=== PATIENT | male | born 1950 | race Caucasian/White ===

== ENCOUNTER → 2017-01-18 | Outpatient (CLI) | payer OTHER ==
[~2017-01-18] MED LIST: GADOBUTROL 10 ML VIAL IVP ONE
== END ==
LOC: FIMAGING 07:01
PROVIDERS: ATTEND Psychiatry & Neurology Neurology
DX: Z03.89 Encounter for observation for other suspected diseases and conditions ruled out (principal); H90.5 Unspecified sensorineural hearing loss
CPT/HCPCS: A9585

== ENCOUNTER 2017-12-08 08:18 | Emergency (ER) | payer OTHER ==
--- NOTE | 2017-12-08 09:00 | EDPHY ---
H & P Stated Complaint: rt shoulder injury last noc aprox 193,dog tipped pt,fell edge of deck Time Seen by Provider: 12/08/17 08:22 HPI/ROS: Chief Complaint: Shoulder pain HPI: 67-year-old male sustained an injury to his right shoulder yesterday evening about 7:30. Patient states that he was standing on a deck about foot above the ground when his dog ran and pulled him off the deck. He landed on his right shoulder. He has been having shoulder pain since that time. Hurts primarily with movement. No prior shoulder injuries. He also sustained abrasion to his left forearm. He did not hit his head. No loss of consciousness. No headache. No nausea or vomiting. ROS: 10 systems were reviewed and were negative except those elements noted in the HPI. PMH: MS Social History: No smoking, no alcohol, no recreational drug use Family History: non-contributory Physical Exam: General: Awake, alert, no acute distress Right shoulder. He has mild anterior tenderness with no bony deformity. He has pain with external rotation and abduction within the shoulder. No joint laxity. Sensations intact distally. He also has an abrasion on his left forearm. Skin: No rash - Personal History Current Tetanus Diphtheria and Acellular Pertussis (TDAP): Yes Tetanus Vaccine Date: 2013 - Medical/Surgical History Hx Asthma: No Hx Chronic Respiratory Disease: No Hx Diabetes: No Hx Cardiac Disease: No Hx Renal Disease: No Hx Cirrhosis: No Hx Alcoholism: No Hx HIV/AIDS: No Hx Splenectomy or Spleen Trauma: No Other PMH: Med-HTN,MS,thyroid. Surg-bilat ankles,vericose veins,henia-left inguinal,oral surgery,birthmark back,T&A - Social History Smoking Status: Never smoked Constitutional: Initial Vital Signs Temperature (C) 36.8 C 12/08/17 08:24 Heart Rate 60 12/08/17 08:24 Respiratory Rate 18 12/08/17 08:24 Blood Pressure 166/88 H 12/08/17 08:24 O2 Sat (%) 98 12/08/17 08:24 O2 Delivery Mode Room Air Allergies/Adverse Reactions: meperidine HCl [From Demerol] Allergy (Verified 12/08/17 08:35) Vomiting Penicillins Allergy (Verified 12/08/17 08:35) Rash promethazine HCl [From Phenergan] Allergy (Verified 12/08/17 08:35) Other-Enter Comments Home Medications: Medication Instructions Recorded Aspirin [Aspirin 81mg (OTC)] 162 mg PO DAILY 07/08/12 Cholecalciferol Vit D3 [Vitamin D3 1,000 units PO BID 07/08/12 1000 units (OTC)] Completed By Pharmacist 07/08/12 07/08/12 Folic Acid 0.8 mg PO DAILY 07/08/12 GLATIRAMER ACETATE [Copaxone] 20 mg SQ HS 07/08/12 LEVOTHYROXINE SODIUM [Levoxyl 137 137 mcg PO DAILY06 07/08/12 mcg] Lisinopril [Zestril 10 mg (RX)] 10 mg PO HS 07/08/12 Multivitamins [Tab-A-Marlene] 1 each PO DAILY 07/08/12 [place]-3 Fatty Acids [Fish Oil 1000 1,000 mg PO BID 07/08/12 mg (OTC)] Pantoprazole Sodium [Protonix 40mg 40 mg PO DAILY 07/08/12 (RX)] Rosuvastatin Calcium [Crestor 20mg 20 mg PO HS 07/08/12 (RX)] TESTOSTERONE [TESTIM] 5 gm TD DAILY 07/08/12 Medical Decision Making - Diagnostics Imaging Results: Right shoulder: No acute fracture or bony abnormality per my interpretation. Imaging: I viewed and interpreted images myself ED Course/Re-evaluation: 67-year-old male with a shoulder contusion and sprain. No obvious fracture dislocation or separation on per my interpretation. Patient's pain is controlled. Will discharge with follow-up with primary care physician, return for any concerns. Departure - Departure Disposition: Home, Routine, Self-Care Clinical Impression: Shoulder contusion, Shoulder sprain Condition: Good Instructions: Shoulder Sprain (ED), Contusion in Adults (ED) Additional Instructions: Apply ice for 15 min of every hour while awake. Take ibuprofen, 600 mg every 8 hr. You may alternate with acetaminophen, 1000 mg every 8 hr. Follow up with primary care physician in 3-4 days if symptoms are not improving. Referrals: Matias Varela MD [Primary Care Provider] - As per Instructions
[2017-12-08 09:09] VITALS: BP 166/88
== END 2017-12-08 09:24 | disposition home or self-care (01) ==
LOC: CED 08:18
DX: S43.401A Unspecified sprain of right shoulder joint, initial encounter (principal); S40.011A Contusion of right shoulder, initial encounter; W13.8XXA Fall from, out of or through other building or structure, initial encounter; Y92.018 Other place in single-family (private) house as the place of occurrence of the external cause; I10 Essential (primary) hypertension; G35 Multiple sclerosis
CPT/HCPCS: 73030-PO

== ENCOUNTER 2017-12-25 10:35 | Inpatient (IN) | payer OTHER ==
--- NOTE | 2017-12-24 13:13 | GHP ---
DATE OF ADMISSION: 12/25/2017 CHIEF COMPLAINT: Left ankle. HISTORY OF PRESENT ILLNESS: The patient is a 67-year-old with history of progressive left ankle pain . He is limiting his activity secondary to his symptoms. PAST MEDICAL HISTORY: Positive for hypothyroid, hypertension, hypercholesterolemia. Sleep apnea. MEDICATIONS: Include: Levothyroxine, lisinopril, pantoprazole, rosuvastatin, Testim, and trazodone. ALLERGIES: He is allergic to Demerol, penicillins, and Phenergan. SOCIAL HISTORY: Negative for tobacco use. FAMILY HISTORY: Noncontributory. PHYSICAL EXAMINATION: GENERAL: The patient is alert and oriented x3, in no acute distress. HEENT: Head is normocephalic. Pupils equal, round, reactive to light. Extraocular eye movements intact. NECK: Supple. No JVD or lymphadenopathy. CHEST: Clear to auscultation. HEART: Regular rate and rhythm. No murmurs or gallops. ABDOMEN: Soft, nontender, nondistended. GENITAL/RECTAL/BREASTS: E xam was deferred. EXTREMITIES: Exam reveals the swelling and tenderness along his left anterior ankl e. He has subtle cavovarus malalignment. ASSESSMENTS: 1. 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 3. Left cavovarus foot. PLAN: The patient is scheduled to undergo a left total ankle arthroplasty and gastrocnemius recessio n with possible calcaneal or 1st metatarsal osteotomy. /[id number]/MODL
[2017-12-25] MEDS ORDERED: BUPIVACAINE 0.5% 30 ML SDV ONE (11:32)
[2017-12-25] MEDS ORDERED: LR 1,000 ML IV ONE (11:37)
[2017-12-25] MEDS ORDERED: MIDAZOLAM 2 MG/2 ML VIAL IVP ONE (11:54)
--- NOTE | 2017-12-25 11:54 | PDANEPAE ---
ANE History of Present Illness 63 yo for L TAA ANE Past Medical History - Cardiovascular History Hx Hypertension: Yes Hx Arrhythmias: No Hx Chest Pain: No Hx Coronary Artery / Peripheral Vascular Disease: No Hx CHF / Valvular Disease: No Hx Palpitations: No Cardiovascular History Comment: bp's have been running lower recently. pcp following bp medications - Pulmonary History Hx COPD: No Hx Asthma/Reactive Airway Disease: No Hx Recent Upper Respiratory Infection: No Hx Oxygen in Use at Home: No Hx Sleep Apnea: Yes Sleep Apnea Screening Result - Last Documented: Positive Pulmonary History Comment: nora positive uses cpap - Neurologic History Hx Cerebrovascular Accident: No Hx Seizures: No Hx Dementia: No Neurologic History Comment: MS - Endocrine History Hx Diabetes: No Endocrine History Comment: a1c was a little high a few years ago- changed diet and increased activity and it is normal now. hypothyroidism - Renal History Hx Renal Disorders: No - Liver History Hx Hepatic Disorders: No - Neurological & Psychiatric Hx Hx Neurological and Psychiatric Disorders: No - Cancer History Hx Cancer: No - Congenital Disorder History Hx Congenital Disorders: No - GI History Hx Gastrointestinal Disorders: Yes Gastrointestinal History Comment: reflux. hx of diverticulitis- modified diet no issues currently - Other Health History Other Health History: wears glasses. bilateral hearing aides - Chronic Pain History Chronic Pain: Yes (left foot) - Surgical History Prior Surgeries: 2013 varicose vein surgery x2 07/2012 and 06/2012. 2000 bilateral ankle reconstructions. vasectomy. hernia repair 40 yrs ago. t&a. ethan on back removed ANE Review of Systems Review of Systems: - Exercise capacity METS (RN): 4 METS ANE Patient History - Allergies Allergies/Adverse Reactions: meperidine HCl [From Demerol] Allergy (Verified 12/08/17 08:35) Vomiting Penicillins Allergy (Verified 12/08/17 08:35) Rash promethazine HCl [From Phenergan] Allergy (Verified 12/19/17 15:33) delirium - Home Medications Home medications: home medication list seen and reviewed Home Medications: Aspirin [Aspirin 81mg (OTC)] 162 mg PO DAILY 07/08/12 [Last Taken 07/02/12] Cholecalciferol Vit D3 [Vitamin D3 1000 units (OTC)] 2,000 units PO DAILY [Last Taken 07/07/12] Folic Acid 0.8 mg PO DAILY 07/08/12 [Last Taken 07/07/12] GLATIRAMER ACETATE [Copaxone] 40 mg SQ MOWEFR@2100 07/08/12 [Last Taken 07/07/12 ] Multivitamins [Tab-A-Marlene] 1 each PO DAILY 07/08/12 [Last Taken 07/07/12] [place]-3 Fatty Acids [Fish Oil 1000 mg (OTC)] 1,000 mg PO BID 07/08/12 [Last Taken 07/07/12] Pantoprazole Sodium [Protonix 40mg (RX)] 40 mg PO DAILY 07/08/12 [Last Taken 04/17 04:30] Rosuvastatin Calcium [Crestor 20mg (RX)] 20 mg PO HS 07/08/12 [Last Taken ] Herbals/Supplements -Info Only 1 ea PO DAILY 12/14/17 [Last Taken Unknown] Levothyroxine [Synthroid 125 mcg (*)] 125 mcg PO DAILY06 12/14/17 [Last Taken Unknown] Lisinopril [Zestril 20 mg (*)] 20 mg PO HS 12/14/17 [Last Taken Unknown] Testosterone [Testim] 7.5 gm TD DAILY 12/14/17 [Last Taken Unknown] traZODone [traZODONE 50MG (*)] 75 mg PO HS 12/14/17 [Last Taken Unknown] - NPO status NPO Status: no food or drink >8 hours - Smoking Hx Smoking Status: Never smoked - Family Anes Hx Family Hx Anesthesia Complications: none ANE Labs/Vital Signs - Vital Signs Height: 6 ft 4 in Weight: 102.058 kg ANE Physical Exam - Airway Neck exam: FROM Mallampati Score: Class 2 Mouth exam: normal dental/mouth exam - Pulmonary Pulmonary: no respiratory distress - Cardiovascular Cardiovascular: regular rate and rhythym - ASA Status ASA Status: III ANE Anesthesia Plan Anesthesia Plan: general endotracheal anesthesia Regional Anesthesia: continuous NB (Discussed CPNB, pt prefers not to have. )
[2017-12-25] MEDS ORDERED: PROPOFOL/EMULSION 500 MG/50 ML BOTTLE IV ONE ×2 (12:12→14:32)
[2017-12-25] MEDS ORDERED: ROCURONIUM 100 MG/10 ML VIAL ONE (12:12)
[2017-12-25] MEDS ORDERED: fentaNYL 250 MCG/5 ML INJ ONE (12:12)
[2017-12-25] MEDS ORDERED: DEXAMETHASONE 4 MG/ML VIAL ONE (12:12)
[2017-12-25] MEDS ORDERED: CEFAZOLIN 2 GM/DEXTROSE/100 ML BAG IV ONE (13:11)
[2017-12-25] MEDS ORDERED: ceFAZolin 2 GM/DEXTROSE 100 ML IV ONE (13:20)
[2017-12-25] MEDS ORDERED: HYDROmorphONE/DILAUDID 2 MG/ML INJ ONE ×2 (14:10→15:50)
[2017-12-25] MEDS ORDERED: KETOROLAC 30 MG/1 ML SDV ONE (14:51)
[2017-12-25] MEDS ORDERED: ONDANSETRON 4 MG/2 ML VIAL ONE (14:51)
[2017-12-25] MEDS ORDERED: ONDANSETRON 4 MG/2 ML VIAL IVP PRN (14:57)
[2017-12-25] MEDS ORDERED: NALOXONE HCL 0.4 MG/ML INJ IVP PRN (14:57)
--- NOTE | 2017-12-25 15:42 | POSTOPPROG ---
Post Op Note Date of Operation: 12/25/17 Surgeon: Truong Ridley Frame Table Operator: RYAN Quesada Pre-op Diagnosis: L Ankle arthrosis, gastroc contracture Post-op Diagnosis: same Procedure: L TAA, gastroc recession Inf/Abcess present in the surg proc area at time of surgery?: No EBL: Minimal
[2017-12-25] MEDS ORDERED: LACTULOSE 20 GM/30 ML UDCUP PO PRN (15:43)
[2017-12-25] MEDS ORDERED: MAGNESIUM HYDROXIDE 30 ML UDCUP PO PRN (15:43)
[2017-12-25] MEDS ORDERED: BISACODYL 10 MG SUPP PR PRN (15:43)
[2017-12-25] MEDS ORDERED: diphenhydrAMINE 25 MG CAP PO PRN (15:43)
[2017-12-25] MEDS ORDERED: morphINE PCA 30 MG/30 ML PCA IV PRN (15:43)
[2017-12-25] MEDS ORDERED: POLYETHYLENE GLYCOL 3350 17 GM PKT PO PRN (15:43)
[2017-12-25] MEDS ORDERED: D5W 1/2 NS W/ 20 KCl/L 1,000 ML IV SCH (15:45)
[2017-12-25] MEDS ORDERED: fentaNYL 100 MCG/2 ML INJ ONE (15:50)
[2017-12-25] MEDS: fentaNYL 100 MCG/2 ML INJ IVP PRN ×2 (15:56→16:02)
[2017-12-25] MEDS: HYDROmorphONE/DILAUDID 2 MG/ML INJ IVP PRN ×2 (15:57→16:06)
[2017-12-25] MEDS: OMEGA-3 FATTY ACIDS 1,000 MG CAP PO SCH (20:28)
[2017-12-25] MEDS: SENNOSIDES/DOCUSATE SODIUM TAB PO SCH (20:28)
[2017-12-25] MEDS: ceFAZolin 2 GM/DEXTROSE 100 ML IV SCH (20:30)
[2017-12-25] MEDS ORDERED: traZODone 50 MG TAB PO SCH (21:00)
[2017-12-25] MEDS ORDERED: LISINOPRIL 20 MG TAB PO SCH (21:00)
[2017-12-25] MEDS ORDERED: ROSUVASTATIN CALCIUM 20 MG TAB PO SCH (21:00)
[2017-12-25] MEDS: oxyCODONE IR 5 MG TAB PO PRN (23:40)
--- NOTE | 2017-12-26 02:19 | GOP ---
DATE OF OPERATION: 12/25/2017 SURGEON: Truong Ridley MD RESOURCE TECHNICIAN: KORY eSth, who was necessary for the completion of the surgery. ANESTHESIA: General. PREOPERATIVE DIAGNOSIS: 1. 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 PROCEDURE PERFORMED: 1. Left implant total ankle arthroplasty. 2. Left gastrocnemius recession. 3. Intraoperative use of fluoroscopy. FINDINGS: ESTIMATED BLOOD LOSS: Minimal. INDICATIONS: The patient is a 67 year old with history of progressive ankle pain. Clinically and ra diographically he is noted to have advanced ankle arthrosis. Based on his persistence of symptoms, r efractory to nonoperative treatment he is interested in pursuing operative treatment. From an operat tamera standpoint for end-stage ankle arthritis, options including arthrodesis and total ankle arthropla sty were discussed with anticipated risks and benefits of both. The patient elected to pursue total ankle arthroplasty. He acknowledged, he understood the potential risks of the operation including, b ut not limited to bleeding, infection, neurovascular damage, including loss of limb or limb function, implant failure, necessitating removal, revision, arthrodesis, or amputation, and anesthetic risks. He acknowledged he understood the potential risks, planned procedure, and postoperative plan well. He had all questions answered prior to surgery. He gave his consent for the operative procedure. DESCRIPTION OF PROCEDURE: Patient brought to the operating after IV antibiotics were administered. He was placed in a supine position where general anesthetic was administered. A tourniquet was place d on the left thigh and a bump underneath the left hip and shoulder, and left lower extremity. He wa s prepped and draped in standard sterile fashion. After marking the incisions and Travon wrap exsanguin ation, tourniquet was inflated to 275. Attention was initially directed toward the ankle. An anteri or approach was utilized. Skin and subcutaneous tissue were longitudinally incised. The extensor re tinaculum was incised in line with the skin incision. The interval between the extensor hallucis rudolph danelle and tibialis anterior was utilized for exposure. The joint capsule was longitudinally incised an d reflected medially and laterally taking care to avoid damage to the neurovascular bundle. Prominen t osteophytes on the anterior aspect of the distal tibia were removed with a chisel and rongeur. End -stage ankle arthritis was noted. The cutting jig from the [employer] total ankle was applied. The jig was optimally corrected for length, varus and valgus, rotation, flexion, extension, and medi al and lateral translation utilizing the Chad wing, fluoroscopic visualization, and flexion-extensio n leighton. The cutting jig was pinned into place. The medial gutter was drilled through the gutter hole s and a pin left in place for protection of the medial gutter during the tibial plafond cut. A saw w as utilized to create the plafond cut. Cut portions of bone were removed with a rongeur. The talar plafond guide was then applied. After distraction through the cutting jig was performed, the guide w as pinned into place with the ankle in neutral dorsiflexed position. The tibial plafond cut was made with a saw. The posterior chamfer guide was then optimally positioned and pinned into place. A siz e 2 guide was utilized and the size was confirmed to be optimal. The posterior chamfer cut was made with a saw. The anterior milling device was then applied and the anterior talar cuts were performed with a coring drill. A size 2 talar trial was impacted into place and found to have excellent fit. Measurements showed a size 3-X tibia would be optimal. A size 3-X tibia with a 6 mm polyethylene was tried to be inserted, but it was somewhat tight. A partial deltoid release was performed. A small amount of the distal tibial plafond was further resected with the saw. After doing this, favorable f it was achieved. There was some tightness, however, to dorsiflexion. Attention at this point was di rected toward the gastrocnemius recession. A longitudinal incision was made along the medial aspect of the lower leg at the mid aspect of the ga stroc. Skin and subcutaneous tissue were sharply incised. Sharp dissection was carried through the superficial posterior compartment fascia in line with the skin incision. The interval between the ga strocnemius and soleus was dissected. Protecting the interval with the speculum, the anterior tendon and the gastrocnemius was released. This allowed for favorable dorsiflexion. Definitive size 3-X t ibial component was impacted into place, followed by a size 2 talar component, and 6 mm polyethylene. The ankle was taken through range of motion, found to have favorable motion and stability. Fluoros copic views confirmed optimal implant placement. Attention was directed toward closure. The retinaculum was closed with 2-0 Vicryl suture in interrup omid fashion. Subcutaneous tissue was closed with 3-0 Vicryl suture in interrupted fashion. Skin nino sed with 4-0 nylon interrupted sutures. The tourniquet was deflated prior to closure with no untowar d bleeding seen. The patient was then taken to the recovery room, extubated in stable condition postoperatively. All sponge, needle, and instrument counts were reported as being correct. DRAINS: None. COMPLICATIONS: None. PLAN: The patient will be admitted for medical management. He will be nonweightbearing on his opera tive extremity. /[id number]/MODL
[2017-12-26] MEDS: ceFAZolin 2 GM/DEXTROSE 100 ML IV SCH (05:04)
[2017-12-26] MEDS ORDERED: LEVOTHYROXINE 125 MCG TAB PO SCH (06:00)
--- NOTE | 2017-12-26 07:42 | SOAPPROG ---
SOAP Progress Note Assessment/Plan: Assessment: S/P TAA Pain tolerable on po Marvin po +U/O Splint intact, no D/C Toes with good cap refill Plan: OOB/PT D/C home 12/26/17 07:40 Objective: Vital Signs Temp Pulse Resp BP Pulse Ox 36.6 C 85 16 114/57 L 93 12/26/17 04:43 12/26/17 04:43 12/26/17 04:43 12/26/17 04:43 12/26/17 04:43 12/25/17 12/26/17 12/27/17 05:59 05:59 05:59 Intake Total 2950 Output Total 1100 Balance 1850 ICD10 Worksheet Patient Problems: Problems Problem Status Onset Acute retention of urine Active Nausea Active
[2017-12-26 08:00] VITALS: BP 128/60
--- NOTE | 2017-12-26 08:05 | PDMN ---
Medical Necessity Medical necessity: CPT 52255 L ankle athroplasty with implant, [facility] IP only procedure
[2017-12-26] MEDS: OMEGA-3 FATTY ACIDS 1,000 MG CAP PO SCH (08:50)
[2017-12-26] MEDS: SENNOSIDES/DOCUSATE SODIUM TAB PO SCH (08:51)
[2017-12-26] MEDS ORDERED: PANTOPRAZOLE SODIUM 40 MG TAB PO SCH (09:00)
[2017-12-26] MEDS ORDERED: TESTOSTERONE TD SCH (09:00)
[2017-12-26] MEDS ORDERED: CHOLECALCIFEROL VIT D3 1,000 UNITS TAB PO SCH (09:00)
[2017-12-26] MEDS ORDERED: FOLIC ACID 1 MG TAB PO SCH (09:00)
[2017-12-26] MEDS ORDERED: ASPIRIN 81 MG CHEWABLE TAB PO SCH (09:00)
[2017-12-26] MEDS ORDERED: ENOXAPARIN 40 MG/0.4 ML SYR SC SCH (09:00)
[2017-12-26] MEDS: oxyCODONE IR 5 MG TAB PO PRN (10:03)
--- NOTE | 2017-12-26 11:22 | ASMTLACE ---
LACE Length of stay for Answers: 2 days current admission Acuity / Level of Answers: Yes Care: Did the patient have an inpatient admission? Comorbidities - select Answers: Opioid dependence all that apply / Chronic pain Other Notes: HTN # of Emergency department Answers: 1-2 visits in the last 6 months Score: 11 Date Signed: 12/26/2017 11:22 AM Electronically Signed By:MIKAEL Newton
--- NOTE | 2017-12-26 11:23 | ASMTCMCOM ---
CM Note CM Note Notes: Pt had planned OA of ankle/foot, resides with spouse. PT rec home/outpatient. No CM d/c needs identified. Date Signed: 12/26/2017 11:23 AM Electronically Signed By:MIKAEL Newton
[2017-12-26] MEDS ORDERED: Glatiramer Acetate [Copaxone] 40 MG SQ SCH (21:00)
--- NOTE | 2017-12-29 18:24 | GDS ---
ADMISSION DIAGNOSIS: Ankle arthrosis. DISCHARGE DIAGNOSIS: Ankle arthrosis. OPERATIONS PERFORMED: Patient underwent a total ankle arthroplasty. HISTORY RELATIVE TO ADMISSION: The patient is a 67-year-old with end-stage ankle arthritis. He pres ented for elective total ankle arthroplasty. HOSPITAL COURSE: Patient was brought in as a direct admit for the aforementioned surgery. He was ta jose to the regular med/surg floor postoperatively in stable condition. His postoperative course was unremarkable. His pain was well controlled on limited oral analgesics. He progressed satisfactorily in his ambulatory status. On postoperative day 1, patient was in satisfactory condition for dischar ge home as he was medically stable and had fulfilled his gait restrictions. DISCHARGE DISPOSITION: Discharged home. DIET: Regular. ACTIVITY: Nonweightbearing to his operative extremity. FOLLOWUP: In approximately 1 week. /[id number]/MODL
== END 2017-12-26 11:39 | disposition home or self-care (01) | DRG 469 ==
LOC: F3N 10:35
PROVIDERS: ADMIT Orthopaedic Surgery Foot and Ankle Surgery; ATTEND Orthopaedic Surgery Foot and Ankle Surgery
PROC: 0LST0ZZ Reposition Left Ankle Tendon, Open Approach (ICD-10-PCS; principal; 2017-12-25 12:15)
PROC: 0SRG0JZ Replacement of Left Ankle Joint with Synthetic Substitute, Open Approach (ICD-10-PCS; principal; 2017-12-25 12:15)
DX: M19.072 Primary osteoarthritis, left ankle and foot (principal); E03.9 Hypothyroidism, unspecified; I10 Essential (primary) hypertension; E78.00 Pure hypercholesterolemia, unspecified; G47.33 Obstructive sleep apnea (adult) (pediatric); K57.30 Diverticulosis of large intestine without perforation or abscess without bleeding
CPT/HCPCS: 97116-GP; 97161-GP; 97165-GO; 97535-GO; G8978-GP-CI; G8979-GP-CI; G8980-GP-CI; G8987-GO-CI; G8988-GO-CI; G8989-GO-CI; J0690; J1100; J1170; J1885; J2250; J2405; J2704; J3010